=== PATIENT | male | born 1975 | race African-American/Black ===

== ENCOUNTER 2021-06-08 16:32 | Inpatient (IN) | payer BC ==
[2021-06-08 19:27] VITALS: BMI 22.2
[2021-06-08] MEDS ORDERED: HYDROcodone/Acetaminophen 7.5/325 mg Tablet PO PRN (20:32)
[2021-06-08] MEDS ORDERED: Morphine 2 MG/ML VIAL SLOW IVP PRN (20:32)
[2021-06-08] MEDS: CEFAZOLIN 2 GM in Premix Bag 1 BAG IVPB SCH (21:23)
[2021-06-08] MEDS: Ketorolac Tromethamine 30 MG/ML VIAL IVP SCH (23:06)
[2021-06-08] MEDS: Dextrose 5 % And 0.9 % NaCl 1,000 ML IV SCH (23:06)
[2021-06-09 00:50] LABS: SARS-CoV-2 NAA Rapid Test Not Detected (NotDetected)
[2021-06-09] MEDS: CEFAZOLIN 2 GM in Premix Bag 1 BAG IVPB SCH ×3 (03:17→14:35)
[2021-06-09] MEDS: Ketorolac Tromethamine 30 MG/ML VIAL IVP SCH ×2 (03:17→10:15)
[2021-06-09] MEDS ORDERED: Neomycin-Polymyxin 1 ML AMP ONE (04:34)
[2021-06-09] MEDS ORDERED: Bupivacaine PF 0.5% 30 ML VIAL ONE (04:34)
[2021-06-09] MEDS ORDERED: Fentanyl 100 MCG/2 ML VIAL ONE (04:49)
[2021-06-09] MEDS ORDERED: Midazolam HCl 2 mg/2 ml Vial ONE (04:49)
[2021-06-09] MEDS ORDERED: Ondansetron PF 4 MG/2 ML Vial ONE (05:13)
[2021-06-09] MEDS ORDERED: Dexamethasone 20 MG/5 ML VIAL ONE (05:13)
[2021-06-09] MEDS ORDERED: Glycopyrrolate 0.2 MG/ML 5 ML SYRINGE ONE (05:13)
[2021-06-09] MEDS ORDERED: PROPOFOL 200 MG/20 ML VIAL ONE (05:13)
[2021-06-09] MEDS ORDERED: Bacitracin Zinc Ointment 30 gm TUBE ONE (06:36)
[2021-06-09] MEDS ORDERED: Morphine 4 MG/ML VIAL SLOW IVP PRN (06:59)
[2021-06-09] MEDS ORDERED: Ondansetron PF 4 MG/2 ML Vial IVP PRN (06:59)
[2021-06-09] MEDS ORDERED: HYDROcodone/Acetaminophen 5/325 mg Tablet PO PRN (06:59)
[2021-06-09] MEDS ORDERED: traMADol HCl 50 MG TAB PO PRN (06:59)
[2021-06-09] MEDS ORDERED: Pharmacy to Dose VANC & ABX IVPB PRN (07:16)
[2021-06-09] MEDS ORDERED: Ketorolac Tromethamine 30 MG/ML VIAL ONE (07:16)
[2021-06-09] MEDS: Sodium Chloride 0.9% 100 ML IV SCH ×6 (07:29→14:41)
[2021-06-09] MEDS ORDERED: Aspirin 81 mg Enteric Coated Tablet PO SCH (09:00)
[2021-06-09 10:12] LABS: ALT (SGPT) 44 U/L (8-55); AST (SGOT) 44 U/L (5-34); Albumin 3.8 g/dL (3.5-5.0); Alkaline Phosphatase 57 U/L (40-110); Anion Gap 11 mmol/L (10-20); BUN (Urea Nitrogen) 10 mg/dL (8.9-20.6); Bilirubin, Total 0.6 mg/dL (0.2-1.2); Calc. Creatinine Clearance 99 mL/min (70-130); Calcium 9.3 mg/dL (7.8-10.44); Carbon Dioxide 25 mmol/L (22-29); Chloride 106 mmol/L (98-107); Globulin 3.4 g/dL (2.4-3.5); Glucose 109 mg/dL (70-105); Potassium 4.6 mmol/L (3.5-5.1); Protein, Total 7.2 g/dL (6.0-8.3); Sodium 137 mmol/L (136-145)
[2021-06-09] MEDS: Dextrose 5 % And 0.9 % NaCl 1,000 ML IV SCH (11:23)
[2021-06-09 15:58] VITALS: BP 148/74; TEMP 98
[2021-06-09] MEDS ORDERED: Vancomycin 1 GM in Premix Bag 1 BAG IVPB SCH (19:00)
[2021-06-10] MEDS ORDERED: TETANUS AND DIPHTHERIA TOX/PF 0.5 ML DISP.SYRIN IM SCH (07:00)
== END 2021-06-09 15:40 | disposition home or self-care (01) | DRG 514 ==
LOC: ERS 16:32 → SURG B 17:47
PROVIDERS: ADMIT Orthopaedic Surgery Hand Surgery; ATTEND Orthopaedic Surgery Hand Surgery
PROC: 0PSQ04Z Reposition Left Metacarpal with Internal Fixation Device, Open Approach (ICD-10-PCS; principal; 2021-06-09)
DX: S62.397B Other fracture of fifth metacarpal bone, left hand, initial encounter for open fracture (principal); Z20.822 Contact with and (suspected) exposure to COVID-19
CPT/HCPCS: 36415; 76000; 80053; J0690; J1100; J1885; J2250; J2405; J2704; J3010; S0020; U0002; U0005

== ENCOUNTER 2023-12-09 09:18 | Emergency (ER) | payer BC ==
[2023-12-09 10:01] LABS: #Eosinphils 0.1 thou/uL (0.0-0.7); #Monocytes 0.5 thou/uL (0.11-0.59); #Neutrophils 5.1 thou/uL (1.40-6.50); %Basophils 0.2 % (0.0-1.0); %Eosinophils 0.8 % (0.0-10.0); %Lymphocytes 7.6 % (21.0-51.0); %Monocytes 7.6 % (0.0-10.0); %Neutrophils 83.5 % (42.0-75.0); Hematocrit 40.9 % (42.0-52.0); Hemoglobin 13.8 g/dL (14.0-18.0); Mean Corpuscular HGB CONC 33.7 g/dL (32.0-36.0); Mean Corpuscular Hemoglobin 24.3 pg (27.0-31.0); Mean Corpuscular Volume 71.9 fl (78.0-98.0); Mean Platelet Volume 9.8 fL (7.4-10.4); Platelet Count 167 10x3/uL (130-400); RBC Distribution Width 13.8 % (11.5-14.5); Red Blood Cell (RBC) Count 5.69 mill/uL (4.70-6.10); White Blood Cell (WBC) Count 6.2 10x3/uL (4.8-10.8)
[2023-12-09 10:23] LABS: ALT (SGPT) 103 U/L (8-55); AST (SGOT) 74 U/L (5-34); Albumin 4.1 g/dL (3.5-5.0); Alkaline Phosphatase 66 U/L (40-110); Anion Gap 10 mmol/L (10-20); BUN (Urea Nitrogen) 13 mg/dL (8.9-20.6); Bilirubin, Total 0.4 mg/dL (0.2-1.2); Calc. Creatinine Clearance 0 mL/min (70-130); Calcium 9.8 mg/dL (7.8-10.44); Carbon Dioxide 25 mmol/L (22-29); Chloride 102 mmol/L (98-107); Estimated GFR 79; Globulin 3.4 g/dL (2.4-3.5); Glucose 97 mg/dL (70-105); Lipase 17 U/L (8-78); Protein, Total 7.5 g/dL (6.0-8.3); Sodium 133 mmol/L (136-145)
[2023-12-09 10:34] LABS: Anisocytosis MARKED = >30 cells HPF (0-5); CellaVision Operator ID LAB.KW3; Large Platelets 13.3 % (0-5); Platelet Adequacy Comment Platelets Normal; Schistocytes SLIGHT = 2-5 cells HPF (0-1); Target Cells MODERATE= 6-15 cells HPF (0-1)
[2023-12-09 10:49] LABS: Bacteria/HPF None Seen HPF (None Seen); Bilirubin Negative (Negative); Blood, Urine Trace (Negative); CAUTI Indications for Culture Fever or rigors; Clarity Clear (Clear); Glucose, Urine (Dipstick) Normal (Negative); Ketone, Urine Negative (Negative); Leukocyte 75 Leu/uL (Negative); Nitrite Negative (Negative); Protein, Urine (Dipstick) 10 mg/dL (Neg-Trace); RBC/HPF 0-3 HPF (0-3); Specific Gravity, Urine 1.023 (1.002-1.036); Squamous Epithelial 0-3 HPF (0-3); Urobilinogen Normal mg/dL (Less than 2); WBC/HPF 0-3 HPF (0-3); pH, Urine 5.5 (5.0-9.0)
[2023-12-09 10:51] LABS: Urine Culture Reflex No No
[2023-12-09] MEDS ORDERED: Ondansetron PF 4 MG/2 ML Vial ONE (10:54)
[2023-12-09] MEDS ORDERED: Ketorolac Tromethamine 30 MG (1 mL) VIAL ONE (10:54)
[2023-12-09] MEDS ORDERED: Iopamidol-370 76% 500 ML MDV (1 ML CHARGE) ONE (11:22)
[2023-12-09 11:25] LABS: SARS-CoV-2 NAA Rapid Test Not Detected (NotDetected)
== END 2023-12-09 12:36 | disposition home or self-care (01) ==
LOC: ERS 09:18
DX: A09 Infectious gastroenteritis and colitis, unspecified (principal); F17.210 Nicotine dependence, cigarettes, uncomplicated
CPT/HCPCS: 36415; 74177; 80053; 81001; 83690; 85025; 96361; 96374; 96375; J1885; J2405; Q9967

== ENCOUNTER 2024-03-31 14:57 | Inpatient (IN) | payer BC, OTHER ==
[2024-03-31] MEDS ORDERED: fentaNYL 50 mcg/mL 1 mL Vial ONE (15:01)
[2024-03-31] MEDS ORDERED: CEFAZOLIN 2 GM VIAL ONE (15:27)
[2024-03-31] MEDS ORDERED: Sodium Chloride 0.9% 100 ML ONE (15:27)
[2024-03-31] MEDS ORDERED: Boostrix 0.5 ML (Tdap) VIAL (>/=7 yrs of age) ONE (15:27)
[2024-03-31 16:03] LABS: #Basophils 0.03 10x3/uL (0.0-0.2); %Basophils 0.8 % (0.0-1.0); %Lymphocytes 32.8 % (21.0-51.0); %Neutrophils 47.4 % (42.0-75.0); Hematocrit 34.6 % (42.0-52.0); Hemoglobin 11.8 g/dL (14.0-18.0); Mean Corpuscular HGB CONC 34.1 g/dL (32.0-36.0); Mean Corpuscular Hemoglobin 24.3 pg (27.0-31.0); Mean Corpuscular Volume 71.3 fL (78.0-98.0); Mean Platelet Volume 10.3 fL (7.4-10.4); Platelet Count 150 10x3/uL (130-400); RBC Distribution Width 13.4 % (11.5-14.5); Red Blood Cell (RBC) Count 4.85 mill/uL (4.70-6.10)
[2024-03-31] MEDS ORDERED: Acetaminophen 325 MG TAB PO PRN (16:09)
[2024-03-31] MEDS ORDERED: Dextrose 5% in Water 1,000 ML IV PRN (16:09)
[2024-03-31] MEDS ORDERED: hydrALAZINE 20 MG/ML VIAL SLOW IVP PRN (16:09)
[2024-03-31] MEDS ORDERED: Dextrose 50% Abboject 50 ML SYRINGE SLOW IVP PRN (16:09)
[2024-03-31] MEDS ORDERED: Ondansetron PF 4 MG/2 ML Vial IVP PRN (16:09)
[2024-03-31] MEDS ORDERED: Glucagon 1 MG/ML KIT IM PRN (16:09)
[2024-03-31] MEDS ORDERED: Ondansetron ODT 4 MG TAB PO PRN (16:09)
[2024-03-31] MEDS ORDERED: traMADol HCl 50 MG TAB PO PRN (16:09)
[2024-03-31 16:12] LABS: ALT (SGPT) 102 U/L (8-55); AST (SGOT) 138 U/L (5-34); Albumin 3.4 g/dL (3.5-5.0); Alkaline Phosphatase 68 U/L (40-110); Anion Gap 15 mmol/L (10-20); BUN (Urea Nitrogen) 15 mg/dL (8.9-20.6); Bilirubin, Total 0.4 mg/dL (0.2-1.2); CK (CPK) 2921 U/L (30-200); Calc. Creatinine Clearance 0 mL/min (70-130); Carbon Dioxide 21 mmol/L (22-29); Chloride 105 mmol/L (98-107); Estimated GFR 103; Globulin 2.9 g/dL (2.4-3.5); Glucose 105 mg/dL (70-105); Potassium 3.9 mmol/L (3.5-5.1); Protein, Total 6.3 g/dL (6.0-8.3); Sodium 137 mmol/L (136-145)
[2024-03-31 16:14] LABS: PTT 27.8 sec (22.9-36.1); Prothrombin Time 12.9 sec (12.0-14.7)
[2024-03-31 16:24] LABS: Microcytosis SLIGHT = 6-15 cells HPF (0-5); Platelet Adequacy Comment Platelets Normal; Polychromasia SLIGHT = 2-3 cells HPF (0-2); Schistocytes SLIGHT = 2-5 cells HPF (0-1); Target Cells MODERATE= 6-15 cells HPF (0-1); Tear Drops SLIGHT = 2-5 cells HPF (0-1)
[2024-03-31 19:23] LABS: Lactic Acid 2.5 mmol/L (0.5-2.2)
[2024-03-31] MEDS: TETANUS, DIPHTHERIA TOX,ADULT (TDVAX) 0.5 ML VIAL IM ONE (19:29)
[2024-03-31] MEDS: Lactated Ringer's 1,000 ML IV SCH (19:38)
[2024-03-31] MEDS: Morphine 2 MG/ML VIAL SLOW IVP PRN (19:38)
[2024-03-31 19:48] VITALS: BMI 16.9
[2024-03-31] MEDS: CEFAZOLIN 2 GM in Sodium Chloride 0.9% 100 ML IVPB SCH (21:31)
[2024-03-31] MEDS: HYDROcodone/Acetaminophen 5/325 mg Tablet PO PRN (22:05)
[2024-04-01 05:28] LABS: Anion Gap 10 mmol/L (10-20); BUN (Urea Nitrogen) 12 mg/dL (8.9-20.6); Calc. Creatinine Clearance 85 mL/min (70-130); Calcium 8.2 mg/dL (7.8-10.44); Carbon Dioxide 24 mmol/L (22-29); Chloride 108 mmol/L (98-107); Estimated GFR 108; Glucose 103 mg/dL (70-105); Potassium 3.8 mmol/L (3.5-5.1); Sodium 138 mmol/L (136-145)
[2024-04-01 05:31] LABS: #Basophils 0.04 10x3/uL (0.0-0.2); %Basophils 0.8 % (0.0-1.0); %Eosinophils 5.7 % (0.0-10.0); %Lymphocytes 46.7 % (21.0-51.0); %Monocytes 13.1 % (0.0-10.0); %Neutrophils 33.5 % (42.0-75.0); Hematocrit 32.1 % (42.0-52.0); Hemoglobin 11.2 g/dL (14.0-18.0); Mean Corpuscular HGB CONC 34.9 g/dL (32.0-36.0); Mean Corpuscular Hemoglobin 24.2 pg (27.0-31.0); Mean Corpuscular Volume 69.3 fL (78.0-98.0); Mean Platelet Volume 10.2 fL (7.4-10.4); Platelet Count 130 10x3/uL (130-400); RBC Distribution Width 13.6 % (11.5-14.5); Red Blood Cell (RBC) Count 4.63 mill/uL (4.70-6.10)
[2024-04-01 06:13] LABS: Microcytosis SLIGHT = 6-15 cells HPF (0-5); Platelet Adequacy Comment Platelets Normal; Target Cells MODERATE= 6-15 cells HPF (0-1)
[2024-04-01] MEDS: Nicotine 21 MG PATCH TD SCH (09:11)
[2024-04-01 09:24] VITALS: BMI 16.9
[2024-04-01 11:37] VITALS: TEMP 98.5
[2024-04-01] MEDS ORDERED: Lidocaine 1% PF 5 ML VIAL ONE (14:44)
[2024-04-01] MEDS ORDERED: Dexamethasone 4 mg/ml Vial ONE (14:44)
[2024-04-01] MEDS ORDERED: Ondansetron PF 4 MG/2 ML Vial ONE (14:44)
[2024-04-01] MEDS ORDERED: Vancomycin 1 GM VIAL ONE (14:45)
[2024-04-01] MEDS ORDERED: fentaNYL PF 100 MCG/2 ML SYRINGE ONE (14:45)
[2024-04-01] MEDS ORDERED: PROPOFOL 40 ML ONE (14:45)
[2024-04-01] MEDS ORDERED: Bacitracin Zinc Ointment 30 gm TUBE ONE (14:46)
[2024-04-01] MEDS ORDERED: Bupivacaine PF 0.5% 30 ML VIAL ONE (14:46)
[2024-04-01] MEDS ORDERED: Glycopyrrolate 0.2 MG/ML 5 ML SYRINGE ONE (15:18)
[2024-04-01] MEDS ORDERED: PHENYLEPHRINE-NS 100 MCG/ML 10 ML SYRINGE ONE (15:55)
[2024-04-01] MEDS ORDERED: ePHEDrine Sulfate 50 MG/10 ML VIAL ONE (16:28)
[2024-04-01 17:57] VITALS: BP 146/90
== END 2024-04-01 19:06 | disposition home or self-care (01) | DRG 502 ==
LOC: ERS 14:57 → SURG A 17:50 → OBSVTOIN 17:50
PROVIDERS: ADMIT Surgery; ATTEND Surgery
PROC: 0LQ60ZZ Repair Left Lower Arm and Wrist Tendon, Open Approach (ICD-10-PCS; principal; 2024-04-01)
DX: S56.522A Laceration of other extensor muscle, fascia and tendon at forearm level, left arm, initial encounter (principal); F17.210 Nicotine dependence, cigarettes, uncomplicated; W27.0XXA Contact with workbench tool, initial encounter; Z79.899 Other long term (current) drug therapy; Y93.89 Activity, other specified; Y92.89 Other specified places as the place of occurrence of the external cause
CPT/HCPCS: 36415; 71045; 80048; 80053; 82550; 83605; 85025; 85610; 85730; 86850; 86900; 86901; 90715; 93005; G0390; J0665; J1100; J2272; J2405; J2704; J3010; J3370; J3490; J7120